=== PATIENT | female | born 1965 | race Caucasian/White ===

== ENCOUNTER 2018-01-27 05:20 | Observation (INO) | payer OTHER ==
[2018-01-13 13:14] VITALS: BMI 26.0
--- NOTE | 2018-01-21 08:50 | PAT Medication Instructions ---
Service Date Jan 21, 2018. Current Home Medication List Carbamazepine (Tegretol), 500 MG PO QPM Carbamazepine (Carbamazepine), 1 TAB PO QAM Cariprazine HCl (Vraylar), 1 TAB PO QAM Citalopram Hydrobromide (Citalopram), 60 MG PO QAM Cranberry (Vaccinium Macrocarp (Cranberry Extract), 1 TAB PO QAM Docusate Sodium (Docusate Sodium), 1 CAP PO BID Doxycycline Hyclate (Vibramycin), 50 MG PO BID Gabapentin (Neurontin), 600 MG PO HS Gabapentin (Neurontin), 400 MG PO QAM Lisinopril (Zestril), 10 MG PO QAM Loratadine/Pseudoephedrine (Claritin-D 24 Hour), 1 TAB PO QAM Melatonin (Melatonin Maximum Strengt), 2 TAB PO HS Multiple Vitamins W/ Minerals (Multivitamin Adults 50+), 1 TAB PO QAM Oxybutynin Chloride (Ditropan), 1 TAB PO BID Pyridoxine (Vitamin B6), 100 MG PO QAM Trazodone Hcl (Trazodone), 50 MG PO HS Valacyclovir Hcl (Valtrex), 1,000 MG PO TID PRN for cold sores Medication Instructions For Your Scheduled Surgery - Hold the following medications per surgeon's instructions: Cranberry (Vaccinium Macrocarp (Cranberry Extract), 1 TAB PO QAM Multiple Vitamins W/ Minerals (Multivitamin Adults 50+), 1 TAB PO QAM Pyridoxine (Vitamin B6), 100 MG PO QAM - Hold the following medications the morning of surgery: Docusate Sodium (Docusate Sodium), 1 CAP PO BID Lisinopril (Zestril), 10 MG PO QAM Loratadine/Pseudoephedrine (Claritin-D 24 Hour), 1 TAB PO QAM Oxybutynin Chloride (Ditropan), 1 TAB PO BID - Take the following medications the morning of surgery with a sip of water: Carbamazepine (Carbamazepine), 1 TAB PO QAM Cariprazine HCl (Vraylar), 1 TAB PO QAM Citalopram Hydrobromide (Citalopram), 60 MG PO QAM Doxycycline Hyclate (Vibramycin), 50 MG PO BID Gabapentin (Neurontin), 400 MG PO QAM Valacyclovir Hcl (Valtrex), 1,000 MG PO TID PRN for cold sores (if needed) - Take the following medications as scheduled the night before surgery: Carbamazepine (Tegretol), 500 MG PO QPM Docusate Sodium (Docusate Sodium), 1 CAP PO BID Doxycycline Hyclate (Vibramycin), 50 MG PO BID Gabapentin (Neurontin), 600 MG PO HS Melatonin (Melatonin Maximum Strengt), 2 TAB PO HS Oxybutynin Chloride (Ditropan), 1 TAB PO BID Trazodone Hcl (Trazodone), 50 MG PO HS Valacyclovir Hcl (Valtrex), 1,000 MG PO TID PRN for cold sores (if needed) If you have any questions please call us at [phone] or [phone] or [phone]
[2018-01-21 09:00] VITALS: Ht 165.1 cm; Wt 73.7 kg
--- NOTE | 2018-01-21 09:18 | DIAGNOSTIC IMAGING REPORT ---
CHEST 2 VIEWS ROUTINE CLINICAL HISTORY: Preoperative evaluation. COMPARISON STUDY: No previous studies for comparison. FINDINGS: Lung volumes are normal. No pneumothorax or pleural effusion is noted. Lungs are clear. Pulmonary vascularity is normal. Cardiac size is normal. Mediastinal contours are normal. Anterior cervical spine fusion is incidentally noted. IMPRESSION: No acute cardiopulmonary findings. Electronically signed by: Shawn Okeefe M.D. 01/21/2018 9:16 AM Dictated Date/Time: 01/21/2018 9:16 AM
[2018-01-21 10:29] LABS: CALCIUM 8.8 mg/dl (8.5-10.1); CREATININE 1.15 mg/dl (0.60-1.20); POTASSIUM 4.9 mmol/L (3.5-5.1)
[2018-01-21 10:31] LABS: BASO % 0.4 %; BASO ABS # 0.03 K/uL (0-0.2); EOS % 4.8 %; EOS ABS # 0.33 K/uL (0-0.5); HEMATOCRIT 39.2 % (37-47); HEMOGLOBIN 12.6 g/dL (12.0-16.0); IG# 0.01 K/uL (0.00-0.02); LYMPH % 24.8 %; LYMPH ABS # 1.69 K/uL (1.2-3.4); MEAN CORPUSCULAR HEMOGLOBIN 31.2 pg (25-34); MEAN CORPUSCULAR HGB CONC 32.1 g/dl (32-36); MEAN PLATELET VOLUME 9.9 fL (7.4-10.4); MONO % 8.8 %; NEUT % 61.1 %; NEUT ABS # 4.16 K/uL (1.4-6.5); PLATELET COUNT 286 K/uL (130-400); RED CELL DISTRIBUTION WIDTH CV 13.1 % (11.5-14.5); WHITE BLOOD COUNT 6.82 K/uL (4.8-10.8)
[2018-01-21 10:32] LABS: PTT PATIENT 24.7 SECONDS (21.0-31.0)
[2018-01-27] VITALS (15 sets, daily range): BP systolic 101–129; BP diastolic 62–87; PULSE 77–101; TEMP 36.4–36.8; O2SAT 96–100
[~2018-01-27] VITALS: Ht 165.1 cm; Wt 73.7 kg
[~2018-01-27 05:20] MED LIST: CARB200T PO; CARI1CAP PO; CRAN200C PO; DOCU100C31 PO; DOXY50CA PO; DTR/5 PO; GABA-113 PO; GABA-1220 PO; LISI-461 PO; LORA24TA7 PO; MELATAB2 PO; MULT-916 PO; PYRI100T4 PO; TGR200 PO; TRAZ50TA35 PO; VALA1TAB2 PO; [UNRECOGNIZED DRUG - CODE] PO
[2018-01-27] MEDS ORDERED: CeleBREX 200 MG CAP PO SCH (06:00)
[2018-01-27] MEDS ORDERED: LACTATED RINGER'S 1000ML 1,000 ML IV SCH (06:00)
[2018-01-27] MEDS ORDERED: GABAPENTIN 900 MG PO SCH (06:00)
[2018-01-27] MEDS ORDERED: CLINDAMYCIN IV 600 MG in DEXTROSE 5% 50ML 50 ML IV SCH (06:00)
[2018-01-27] MEDS ORDERED: ACETAMINOPHEN 500 MG TAB PO SCH (06:00)
[2018-01-27] MEDS ORDERED: DEXAMETHASONE SOD INJ 4 MG/ML VIAL ONE ×3 (06:41→08:00)
[2018-01-27] MEDS ORDERED: ONDANSETRON INJ 2 MG/ML 2 ML VIAL ONE (06:41)
[2018-01-27] MEDS ORDERED: NEOSTIGMINE METHYLSULFATE 1 MG/ML 10ML VIAL ONE (06:41)
[2018-01-27] MEDS ORDERED: PROPOFOL IV EMULSION 10 MG/ML 20 ML VIAL ONE (06:41)
[2018-01-27] MEDS ORDERED: LIDOCAINE HCL 2% 2 ML VIAL (20MG/ML) ONE (06:41)
[2018-01-27] MEDS ORDERED: GLYCOPYRROLATE INJ 0.2 MG/ML VIAL ONE (06:41)
[2018-01-27] MEDS ORDERED: ROCURONIUM BROMIDE 10 MG/ML 5 ML VIAL ONE (06:41)
[2018-01-27] MEDS ORDERED: FENTANYL CITRATE INJ 50 MCG/1 ML 2 ML VIAL ONE (06:42)
[2018-01-27] MEDS ORDERED: MIDAZOLAM HCL 1 MG/ML 2ML VIAL ONE (06:42)
[2018-01-27] MEDS ORDERED: BACITRACIN 50000 UNIT VIAL ONE (07:07)
--- NOTE | 2018-01-27 07:30 | History & Physical Bridge Note ---
H&P Re-Evaluation Bridge Note: I have examined the patient, reviewed the History & Physical and in the interval since the performance of the History & Physical I have noted the following changes of clinical significance: No changes noted
--- NOTE | 2018-01-27 07:32 | History and Physical ---
History & Physical Date Jan 27, 2018. Chief Complaint Neck and arm pain History of Present Illness The patient is a 52 year old female with complaints of neck and arm pain Additional History Hepatic Disease: No Endocrine Disorder: No Kidney Disease: No Hypertension: Yes Heart Disease: No Bleeding Tendencies: No Infectious Diseases: No Allergies Coded Allergies: Penicillins (Verified Allergy, Unknown, rash and itchy, 01/13/18) Home Medications Scheduled Carbamazepine (Tegretol), 500 MG PO QPM Carbamazepine (Carbamazepine), 1 TAB PO QAM Cariprazine HCl (Vraylar), 1 TAB PO QAM Citalopram Hydrobromide (Citalopram), 60 MG PO QAM Cranberry (Vaccinium Macrocarp (Cranberry Extract), 1 TAB PO QAM Docusate Sodium (Docusate Sodium), 1 CAP PO BID Doxycycline Hyclate (Vibramycin), 50 MG PO BID Gabapentin (Neurontin), 600 MG PO HS Gabapentin (Neurontin), 400 MG PO QAM Lisinopril (Zestril), 10 MG PO QAM Loratadine/Pseudoephedrine (Claritin-D 24 Hour), 1 TAB PO QAM Melatonin (Melatonin Maximum Strengt), 2 TAB PO HS Multiple Vitamins W/ Minerals (Multivitamin Adults 50+), 1 TAB PO QAM Oxybutynin Chloride (Ditropan), 1 TAB PO BID Pyridoxine (Vitamin B6), 100 MG PO QAM Trazodone Hcl (Trazodone), 50 MG PO HS Scheduled PRN Valacyclovir Hcl (Valtrex), 1,000 MG PO TID PRN for cold sores Physical Examination Skin: warm/dry, no rash Eyes: normal inspection, EOMI, sclerae normal ENT: normal ENT inspection, pharynx normal Head: normocephalic, atraumatic Neck: supple, no adenopathy, trachea midline Respiratory/Chest: lungs clear, normal breath sounds, no respiratory distress Cardiovascular: regular rate, rhythm, no edema, no murmur Abdomen / GI: normal bowel sounds, non tender Back: normal inspection Extremities: normal inspection, normal range of motion Neurologic/Psych: no motor/sensory deficits, alert, normal reflexes, oriented x 3 Diagnosis Cervical stenosis with radiculopathy Plan of Treatment Hardware removal plate and screws C5-6 ACDF C6-7
[2018-01-27] MEDS ORDERED: ONDANSETRON INJ 2 MG/ML 2 ML VIAL IV PRN ×2 (08:00→09:15)
[2018-01-27] MEDS ORDERED: EpHEDrine SULFATE INJ 50 MG/ML AMP IV PRN (08:00)
[2018-01-27] MEDS ORDERED: HYDROmorphone INJ 0.5 MG/0.5 ML SYR IV PRN ×2 (08:00→09:15)
[2018-01-27] MEDS ORDERED: PROMETHAZINE HCL INJ 12.5 MG in SODIUM CHLORIDE 0.9% 50ML 50 ML IV PRN (08:00)
[2018-01-27] MEDS ORDERED: PHENYLEPHRINE 100MCG/ML 5ML SYR IV PRN (08:00)
[2018-01-27] MEDS ORDERED: FENTANYL CITRATE INJ 50 MCG/1 ML 2 ML VIAL IV PRN (08:00)
[2018-01-27] MEDS ORDERED: ATROPINE SULFATE 0.1 MG/ML 5ML SYR IV PRN (08:00)
[2018-01-27] MEDS ORDERED: PHENYLEPHRINE 100MCG/ML 5ML SYR ONE (08:11)
[2018-01-27] MEDS ORDERED: EpHEDrine SULFATE 50MG/5ML SYR ONE (08:11)
[2018-01-27] MEDS ORDERED: FLOSEAL HEMOSTATIC MATRIX 10ML TOP ONE (08:54)
--- NOTE | 2018-01-27 09:04 | [facility] Operative Report ---
Operative Report Operative Date Jan 27, 2018. Pre-Operative Diagnosis Cervical stenosis with radiculopathy Post-Operative Diagnosis Cervical stenosis with radiculopathy Procedure(s) Performed 1. Removal of anterior cervical instrumentation C5-6. #2 expiration fusion C5-6. #3 anterior cervical discectomy bilateral foraminotomies C6-7. #4 anterior cervical arthrodesis C6-7. #5 placement of cortical allograft filled with DBM 9 mm in height at C6-7. #6 application of paulson plate and screws across C6-7. Surgeon Dr. Valladares Director Of Trauma Surgeon(s) Brissa Monge PA-C Estimated Blood Loss 25 ML Findings Cervical stenosis Specimens a. explanted hardware- spine Anesthesia Type General Description of Procedure Patient was met with preoperatively case discussed all questions addressed. After informed consent obtained patient was taken to the operative suite underwent intubation placed in prone position injection problems frame all bony prominences well-padded eyes inspected to ensure no external pressure placed upon the. This point the anterior cervical spine was prepped and draped in normal sterile fashion with the assistance of fluoroscopy identified the C6 vertebral body and a transverse incision was placed along the right anterior aspect of the cervical spine overlying this region. Sharp dissection with the assistance of bipolar cautery was performed on December exposing the anterior cervical spine at C6-7 and the plate at C5-6. Then proceeded remove the plate without difficulty. Explored the fusion mass noting to be intact. Then performed complete discectomy of C6-7 up to the uncovertebral joints bilaterally. Bivins distracting pins were utilized to assist visualization. The remove all posterior annular fibers and longitudinal ligament and performed bilateral foraminotomies. Endplates were then burred to subcortical bleeding bone and a 9 mm cortical allograft filled with DBM tapped in position. Distracting apparatus was removed a paulson plate and screws applied with the assistance of fluoroscopy. Incision was then copiously irrigated explored to ensure there is no damage to surrounding structures or remaining bleeding. 10 round ELAINE drain inserted. Incision was then closed with 2 Vicryl in a fashion of 4 Monocryl for fast closure Steri-Strips sterile dressings placed. Patient will continue PACU in a stable condition. Please note Brissa Maravilla was present throughout the entire procedure involved the patient positioning complex portions of the surgery and final skin closure. I attest to the content of the Intraoperative Record and any orders documented therein. Any exceptions are noted below.
[2018-01-27] MEDS ORDERED: RACEPINEPHRINE 2.25% NEBU SOLN 0.5 ML VIAL INH PRN (09:15)
[2018-01-27] MEDS ORDERED: DO NOT ADMINISTER PNEUMOCOCCAL VACCINE PRN (09:15)
[2018-01-27] MEDS ORDERED: ACETAMINOPHEN IV 1,000 MG in EMPTY BAG 0 ML IV PRN (09:15)
[2018-01-27] MEDS ORDERED: LORAZEPAM 0.5 MG TAB PO PRN (09:15)
[2018-01-27] MEDS ORDERED: DiphenhydrAMINE HCL 50 MG/ML VIAL IV PRN (09:15)
[2018-01-27] MEDS ORDERED: MAGNESIUM HYDROXIDE SUSP 30 ML UDC PO PRN (09:15)
[2018-01-27] MEDS ORDERED: DEXAMETHASONE INJ 8 MG in SYRINGE 0 ML IV PRN (09:15)
[2018-01-27] MEDS ORDERED: LORAZEPAM INJ 0.5 MG in SYRINGE 0.75 ML IV PRN (09:15)
[2018-01-27] MEDS ORDERED: OXYCODONE HCL IR 5 MG TAB (IMMEDIATE RELEASE) PO PRN (09:15)
[2018-01-27] MEDS ORDERED: NALOXONE HCL 0.4 MG/1 ML VIAL/CARP IV PRN (09:15)
[2018-01-27] MEDS ORDERED: DO NOT ADMINISTER FLU VACCINE PRN (09:15)
[2018-01-27] MEDS ORDERED: NALOXONE HCL 0.4 MG/1 ML VIAL/CARP ONE (09:20)
--- NOTE | 2018-01-27 09:42 | DIAGNOSTIC IMAGING REPORT ---
CERVICAL 2 OR 3 VIEWS CLINICAL HISTORY: ACDF C6-7/ REMOVE HARDWARE C5-6 COMPARISON STUDY: Cervical spine fluoroscopic images July 23, 2009. Fluoroscopy time: 10 seconds. 3 fluoroscopic images were obtained. FINDINGS: These images demonstrate a previous C4-C5 anterior discectomy and fusion. C5-C6 fusion hardware has been removed with interval C6-C7 anterior discectomy and fusion with interbody graft. IMPRESSION: Fluoroscopic images demonstrating hardware removal and interval C6-C7 anterior discectomy and fusion. Electronically signed by: Shawn Okeefe M.D. 01/27/2018 9:41 AM Dictated Date/Time: 01/27/2018 9:39 AM
[2018-01-27] MEDS: LACTATED RINGER'S 1000ML 1,000 ML IV SCH ×2 (12:13→18:37)
[2018-01-27] MEDS ORDERED: SCOPOLAMINE 1.5 MG TDSY TD SCH (13:00)
[2018-01-27] MEDS ORDERED: IV FLUIDS COMPLETED PRN (13:45)
[2018-01-27] MEDS ORDERED: RXC5 PO (15:30)
--- NOTE | 2018-01-27 15:31 | Discharge Instructions ---
Discharge Instructions Date of Service Jan 27, 2018. Admission Reason for Admission: Spinal Stenosis Discharge Discharge Diagnosis / Problem: cervical stenosis Discharge Goals Goal(s): Improve function Activity Recommendations Activity Limitations: per Instructions/Follow-up section . Instructions / Follow-Up Instructions / Follow-Up u ACTIVITY RECOMMENDATIONS: SELF CARE INSTRUCTIONS AFTER CERVICAL FUSIONS 1. No smoking. Smoking drastically decreases the chance of a solid fusion. 2. No bending, lifting more than 5 pounds, or twisting (roll like a log when turning in bed). 3. You may shower 3 days after surgery. Thoroughly dry wound. Do not soak in the tub. 4. Cervical collar: Must be worn at all times including sleeping. You may remove the brace only to bath, eat and if you are sitting in a recliner. 5. Please walk as much as you can for exercise. Gradually increase the distance that you walk as your endurance increases. SPECIAL CARE INSTRUCTIONS: VERY IMPORTANT TO READ AND REVIEW A. Do not take any anti-inflammatory medications (i.e. Indocin, Advil, Aspirin, Naprosyn, Aleve, Motrin, etc.) as these may inhibit the chance of a solid fusion. Tylenol is okay to take. B. Your surgical incision has been closed with a cosmetic suture under the skin that will dissolve in about 6 weeks. In 14 days, you can use a pair of clean scissors and cut the suture that is left outside of the skin at the ends of your incision. C. Complications are uncommon, but please contact us if you have any signs or symptoms of: 1. wound infection (fever higher than 102.5 degrees F, redness, separation of wound, drainage, or increasing pain from the incision) 2. blood clots in legs (pain, swelling, redness and warmth in legs) 3. urinary tract infection (fever higher than 102.5 degrees, burning upon urination or increased frequency of urination) 4. nerve problems (inability to walk on your toes or heels, numbness, loss of bowel or bladder control) 5. any other symptoms that concern you. D. Please call the office at if you have any concerns or questions about your operation or recovery. MANAGING PAIN AFTER SPINAL SURGERY 1. Narcotic medication is intended for short-term use and will be provided for surgical pain. Surgical pain usually lasts for a period of 4-6 weeks. Narcotic medication includes Percocet, Vicodin, Darvocet, Tylenol #3 or Lortab. 2. Longer-term pain is more appropriately treated with non-narcotic medication such as Tylenol ES. 3. Muscle spasm is not appropriately treated with narcotics. Muscle relaxers such as Soma, Flexeril or Skelaxin can be used along with Tylenol ES. 4. Remember that we all live with some "aches and pains". This is not unusual or uncommon after an injury or as we get older. 5. We will provide appropriate medication within the normal guidelines of their prescribed use. We will also be very cautious and aware of potential abuse and extended duration of patients' medication needs. 6. Please allow 2-3 days to process refills. Prescriptions will not be mailed but must be picked up at the office. FOLLOW UP VISIT: Keep your scheduled follow-up appointment. Any questions, please call the office at . Current Hospital Diet Patient's current hospital diet: Clear Liquid Diet Discharge Diet Recommended Diet: Regular Diet Procedures Procedures Performed: 1. Removal of anterior cervical instrumentation C5-6. #2 expiration fusion C5-6. #3 anterior cervical discectomy bilateral foraminotomies C6-7. #4 anterior cervical arthrodesis C6-7. #5 placement of cortical allograft filled with DBM 9 mm in height at C6-7. #6 application of paulson plate and screws across C6-7. Pending Studies Studies pending at discharge: no Medical Emergencies . Who to Call and When: Medical Emergencies: If at any time you feel your situation is an emergency, please call 911 immediately. . Non-Emergent Contact Non-Emergency issues call your: Primary Care Provider . "Provider Documentation" section prepared by Dominic Valladares. .
[2018-01-27] MEDS: CHECK SCOPOLAMINE PATCH PLACEMENT SCH ×2 (15:40→23:32)
[2018-01-27] MEDS: CLINDAMYCIN IV 600 MG in DEXTROSE 5% 50ML 50 ML IV SCH ×2 (15:41→23:28)
[2018-01-27] MEDS ORDERED: GABAPENTIN 600 MG TAB PO SCH (21:00)
[2018-01-27] MEDS ORDERED: CARBAMAZEPINE 200 MG TAB PO SCH (21:00)
[2018-01-27] MEDS ORDERED: TRAZODONE HCL 50 MG TAB PO SCH (21:00)
[2018-01-27] MEDS ORDERED: DOCUSATE SODIUM 100 MG CAP PO SCH (21:00)
[2018-01-27] MEDS: DOXYCYCLINE HYCLATE 50 MG CAP PO SCH (21:22)
[2018-01-27] MEDS: DOCUSATE SODIUM 100 MG CAP PO SCH (21:23)
[2018-01-27] MEDS: OXYBUTYNIN CHLORIDE 5 MG TAB PO SCH (21:24)
[2018-01-28] VITALS (11 sets, daily range): BP systolic 91–110; BP diastolic 59–74; PULSE 91–100; TEMP 36.7–37; O2SAT 94–100
[2018-01-28] MEDS: CHECK SCOPOLAMINE PATCH PLACEMENT SCH (07:32)
[2018-01-28] MEDS: CLINDAMYCIN IV 600 MG in DEXTROSE 5% 50ML 50 ML IV SCH (07:32)
[2018-01-28] MEDS: LACTATED RINGER'S 1000ML 1,000 ML IV SCH (07:32)
[2018-01-28] MEDS: DOCUSATE SODIUM 100 MG CAP PO SCH (08:52)
[2018-01-28] MEDS: DOXYCYCLINE HYCLATE 50 MG CAP PO SCH (08:52)
[2018-01-28] MEDS: OXYBUTYNIN CHLORIDE 5 MG TAB PO SCH (08:54)
[2018-01-28] MEDS ORDERED: LISINOPRIL 10 MG TAB PO SCH (09:00)
[2018-01-28] MEDS ORDERED: GABAPENTIN 400 MG CAP PO SCH (09:00)
[2018-01-28] MEDS ORDERED: CARBAMAZEPINE 200 MG TAB PO SCH (09:00)
[2018-01-28] MEDS ORDERED: CITALOPRAM 20 MG TAB PO SCH (09:00)
[2018-01-28] MEDS ORDERED: LORATADINE/PSEUDOEPHEDRINE 1 TAB TABCR PO SCH (09:00)
--- NOTE | 2018-01-28 09:39 | Anesthesiology Progress Note ---
Anesthesia Post Op Note Date & Time Jan 28, 2018 at 09:39 Vital Signs Pain Intensity: 0.0 Vital Signs Past 12 Hours Date Time Temp Pulse Resp B/P (MAP) Pulse Ox O2 Delivery O2 Flow Rate FiO2 01/28/18 07:47 37.0 91 16 110/74 99 Room Air 01/28/18 07:42 98 Room Air 01/28/18 07:00 100 14 97 Room Air 01/28/18 05:59 36.7 92 16 95/61 100 Room Air 01/28/18 03:52 36.8 97 16 91/59 97 Room Air 01/28/18 03:41 99 14 99 Room Air 01/28/18 02:00 37.0 100 16 99/65 94 Room Air 01/28/18 00:00 37.0 96 16 99/64 97 Room Air 01/28/18 00:00 Room Air 01/27/18 23:20 100 14 97 Room Air 01/27/18 22:04 36.7 96 16 113/75 97 Room Air Notes Mental Status: alert / awake / arousable, participated in evaluation Pt Amnestic to Procedure: Yes Nausea / Vomiting: adequately controlled Pain: adequately controlled Airway Patency, RR, SpO2: stable & adequate BP & HR: stable & adequate Hydration State: stable & adequate Anesthetic Complications: no major complications apparent
--- NOTE | 2018-01-28 14:30 | Discharge Summary ---
Orthopedic Discharge Summary Admission Date/Reason Jan 27, 2018 at 05:45 Spinal Stenosis. Discharge Date/Disposition Jan 28, 2018 Home Diagnosis Principal Diagnosis: Cervical spinal stenosis with radiculopathy Admission Physical Exam As per Admitting History & Physical. Hospital Course Patient underwent anterior cervical discectomy and fusion tolerated as well as taken to the orthopedic floor.. Postoperatively she is swallowing well no hoarseness arm symptoms improved pain well controlled subsequently discharged home. Discharge orders and instructions found in the chart for further review. Discharge Instructions Please refer to the electronic Patient Visit Report (Discharge Instructions) for additional information.
[2018-01-29] MEDS ORDERED: BISACODYL 5 MG TABEC PO PRN (06:00)
[2018-01-29] MEDS ORDERED: BISACODYL 10 MG SUPP PR PRN (06:00)
[2018-01-29] MEDS ORDERED: POLYETHYLENE (MIRALAX) 17 GM PACK PO SCH (09:00)
== END 2018-01-28 13:18 | disposition home or self-care (01) ==
LOC: C.ACU 05:20 → C.3E 05:45 → ENRESERV 09:54
PROVIDERS: ADMIT Orthopaedic Surgery Orthopaedic Surgery of the Spine; ATTEND Orthopaedic Surgery Orthopaedic Surgery of the Spine
DX: M48.02 Spinal stenosis, cervical region (principal); Z79.899 Other long term (current) drug therapy; I10 Essential (primary) hypertension; K21.9 Gastro-esophageal reflux disease without esophagitis; M19.90 Unspecified osteoarthritis, unspecified site; F31.9 Bipolar disorder, unspecified; F41.9 Anxiety disorder, unspecified; G62.9 Polyneuropathy, unspecified; Z80.0 Family history of malignant neoplasm of digestive organs